=== PATIENT | male | born 1980 | race Caucasian/White ===

== ENCOUNTER 2016-12-06 14:04 | Emergency (ER) | payer OTHER ==
--- NOTE | ~2016-12-06 | CR7 ---
[facility]. [facility] A Service of [facility] & [facility] RADIOLOGY TEXT RESULTS PATIENT: SANIA LONGORIA LOCATION: SED : 78 UNIT #: [id number] AGE: [address]: Rory Marte MD SEX: M ORDER DR: [id number] [place] [id number] E MR#: [id number] Acc #: [id number] NAME: SANIA LONGORIA. : 1980 SEX: M STUDY DATE/TIME: 12/06/2016 14:42 UNIT: SED ROOM: STUDY DESCRIPTION: CR Abdomen Single AP View Attending Physician: Rory Marte M.D. Ordering Physician: Rory Marte M.D. Primary Care Physician: No Primary Care Physician MEDICAL IMAGING REPORT This report is preliminary unless electronic signature is present. EXAM Abdomen, single view; dated 12/06/2016. COMPARISON Acute abdominal series dated 09/04/2014. HISTORY Abdominal pain all over for the last 3 days. FINDINGS Single view of the abdomen was obtained. There is nonspecific bowel gas pattern without any evidence of bowel obstruction or free intraperitoneal air. No obvious calcifications to suggest gallstones or urinary stones. Bones are unremarkable. Dictated by... Lawanda Copeland M.D. THIS IS AN ELECTRONICALLY VERIFIED REPORT Lawanda Copeland M.D. at 12/07/2016 4:27 PM CPR/jt TD: 12/06/2016 17:29 JOB #: [id number] MEDICAL IMAGING REPORT Page 1 of 1
[~2016-12-06 14:04] MED LIST: ALBUTEROL HFA INH; ALBUTEROL17 GM INH; AMOXICILLIN875 MG PO; AUGMENTIN; BACTRIM DS TABL1 TA1 DOB; BACTRIM DS TABL1 TA1 PO; BENZONATATE PO; FLEXERIL10 MG PO; IBUPROFEN800 MG PO; KEFLEX500 M1 PO; KEFLEX500 M2 PO; MOTRIN600 M1 PO; NO MEDICATIONS; NORCO 10-325 TA1 TAB PO; NORCO1 TAB 10/3 PO; TRAMADOL HCL50 M1 PO; VICODIN 5/1 TAB 5/50 DOB
[2016-12-06 14:40] LABS: BASOPHIL# 0.1 X10e3 (0-0.3); BASOPHIL% 0.8 % (0-2.5); EOSINOPHIL# 0.1 X10e3 (0-0.7); EOSINOPHIL% 1.2 % (0.0-7.0); HEMATOCRIT 46.8 % (38.0-50.0); HEMOGLOBIN 16.3 gm/dL (13.0-16.0); LYMPHOCYTE# 2.7 X10e3 (1.0-3.5); MEAN CELL VOLUME 87.1 FL (83-96); MEAN CORPUSCULAR HEMOGLOBIN 30.3 PG (28-34); MEAN CORPUSCULAR HGB CONC 34.8 g/dL (30-36); MEAN PLATELET VOLUME 8.2 FL (6.5-11.5); MONOCYTE# 0.7 X10e3 (0-1.0); MONOCYTE% 7.6 % (3.0-12.0); NEUTROPHIL# 5.4 X10e3 (1.5-7.1); NEUTROPHIL% 60.4 % (40-75); PLATELET COUNT 211 X10e3 (140-420); RED BLOOD COUNT 5.37 X10e (3.90-5.60); RED CELL DISTRIBUTION WIDTH 13.7 % (11.0-15.5); WHITE BLOOD COUNT 8.9 X10e3 (4.0-10.5)
[2016-12-06 14:59] LABS: DIFF IND NO
[2016-12-06 15:11] LABS: ALBUMIN SERUM 4.3 g/dL (3.5-5.0); ALKALINE PHOSPHATASE 65 U/L (32-92); ALT (SGPT) 70 U/L (10-40); AST (SGOT) 39 U/L (10-42); BILIRUBIN,TOTAL 0.6 mg/dL (0.2-2.0); BLOOD UREA NITROGEN 19 mg/dL (9-23); CALCIUM SERUM 9.2 mg/dL (8.4-10.2); CARBON DIOXIDE 25 mmol/L (22-31); CHLORIDE 108 mmol/L (100-111); GLOM FILT RATE Estimated 95.7 mL/min (>60); GLUCOSE FASTING 107 mg/dL (70-110); LIPASE 46 U/L (22-51); PROTEIN TOTAL SERUM 7.4 g/dL (6.0-8.3); SODIUM 138 mmol/L (135-145)
[2016-12-06 15:24] LABS: BILIRUBIN, DIRECT <0.1 mg/dL (0.0-0.2); BILIRUBIN,INDIRECT 0.5 mg/dL (0.0-0.9)
== END 2016-12-06 15:48 | disposition home or self-care (01) ==
LOC: SED 14:04
PROVIDERS: Emergency Medicine
DX: R10.84 Generalized abdominal pain (principal); R11.0 Nausea; F17.210 Nicotine dependence, cigarettes, uncomplicated
CPT/HCPCS: 36415; 74000; 80048; 80076; 83690; 85025; 99284